=== PATIENT | male | born 1995 | race Caucasian/White ===

== ENCOUNTER 2020-07-02 13:53 | Emergency (ER) | payer SELFPAY ==
[~2020-07-02] VITALS: Ht 180.3 cm; Wt 61.1 kg
--- NOTE | 2020-07-02 14:44 | NUR ---
first contact, pt in room, no distress states ear pain gfor 3 days.
[2020-07-02 15:09] VITALS: BP 116/64
--- NOTE | 2020-07-02 15:11 | NUR ---
pt walked out self with steady gait, vss. discussed if s&s worsen or persist return to ER
== END 2020-07-02 15:14 | disposition home or self-care (01) ==
LOC: ED 15:10
DX: H60.312 Diffuse otitis externa, left ear (principal)
CPT/HCPCS: 99283